=== PATIENT | female | born 1950 | race Caucasian/White ===

== ENCOUNTER 2017-01-07 08:15 | Outpatient (CLI) ==
--- NOTE | 2017-01-07 08:58 | MAMMO ---
EXAM: Bilateral digital screening mammogram. History: Screening Comparison: Bilateral mammogram 01/04/2016. Findings: MLO and CC views of bilateral breasts demonstrate scattered fibroglandular breast parench yma. No change in the benign appearing bilateral nodular densities. No developing masses, no suspic ious microcalcifications and no architectural distortions Impression: Benign stable mammogram. Recommend followup routine screening mammography in 1 year. BIRADS 2
== END 2017-01-07 08:16 | disposition home or self-care (01) ==
LOC: RAD 08:15
PROVIDERS: ATTEND Emergency Medicine
DX: Z12.31 Encounter for screening mammogram for malignant neoplasm of breast (principal)

== ENCOUNTER 2017-03-18 13:49 | Outpatient (CLI) ==
[2017-03-18 14:24] LABS: BASOPHILS # (AUTO) 0.1 K/uL (0-0.2); BASOPHILS % (AUTO) 0.6 % (0.0-3.0); EOSINOPHILS # (AUTO) 0.2 K/ul (0.0-0.7); EOSINOPHILS % (AUTO) 2.1 % (0.0-7.0); HEMATOCRIT 41.2 % (37.0-47.0); HEMOGLOBIN 13.4 g/dl (12.0-16.0); IMMATURE GRANULOCYTE % (AUTO) 0.5 % (0.0-5.0); LYMPHOCYTES # (AUTO) 1.4 K/uL (0.60-3.4); LYMPHOCYTES % (AUTO) 15.6 (10.0-50.0); MEAN CORPUSCULAR HEMOGLOBIN 27.1 pg (27.0-31.0); MEAN CORPUSCULAR HGB CONC 32.5 (31.8-35.4); MEAN CORPUSCULAR VOLUME 83.2 fl (81.0-99.0); MONOCYTES # (AUTO) 0.6 K/uL (0.4-2.0); MONOCYTES % (AUTO) 6.6 (0-10); NEUTROPHILS # (AUTO) 6.6 K/ul (2.0-6.9); NEUTROPHILS % (AUTO) 74.6; PLATELET COUNT 284 10^3/uL (140-440); RED BLOOD COUNT 4.95 10^6/ul (4.20-5.40); WHITE BLOOD COUNT 8.85 K/ul (4.6-10.2)
[2017-03-18 15:01] LABS: ALBUMIN 3.7 g/dL (3.4-5.0); ALBUMIN/GLOBULIN RATIO 0.95; ANION GAP 13.6; BILIRUBIN,TOTAL 0.75 mg/dL (0.00-1.20); BUN/CREATININE RATIO 10.52; CHOL/HDL RATIO 3.2 (4.5-5.5); CREATININE 0.95 mg/dL (0.60-1.30); POTASSIUM 3.6 mmol/L (3.5-5.10); TOTAL PROTEIN 7.6 g/dL (5.8-8.1)
== END 2017-03-18 13:50 | disposition home or self-care (01) ==
LOC: LAB 13:49
PROVIDERS: ATTEND Emergency Medicine
DX: E78.5 Hyperlipidemia, unspecified (principal); I10 Essential (primary) hypertension
CPT/HCPCS: 36415; 80053; 80061; 84443; 85025

== ENCOUNTER 2017-06-17 09:33 | Outpatient (CLI) ==
[2017-06-17 09:45] LABS: BASOPHILS # (AUTO) 0.1 K/uL (0-0.2); BASOPHILS % (AUTO) 0.5 % (0.0-3.0); EOSINOPHILS # (AUTO) 0.1 K/ul (0.0-0.7); EOSINOPHILS % (AUTO) 1.2 % (0.0-7.0); HEMATOCRIT 41.7 % (37.0-47.0); HEMOGLOBIN 13.9 g/dl (12.0-16.0); IMMATURE GRANULOCYTE % (AUTO) 0.6 % (0.0-5.0); LYMPHOCYTES # (AUTO) 1.5 K/uL (0.60-3.4); LYMPHOCYTES % (AUTO) 13.8 (10.0-50.0); MEAN CORPUSCULAR HEMOGLOBIN 27.6 pg (27.0-31.0); MEAN CORPUSCULAR HGB CONC 33.3 (31.8-35.4); MEAN CORPUSCULAR VOLUME 82.9 fl (81.0-99.0); MONOCYTES # (AUTO) 0.8 K/uL (0.4-2.0); MONOCYTES % (AUTO) 7.1 (0-10); NEUTROPHILS # (AUTO) 8.4 K/ul (2.0-6.9); NEUTROPHILS % (AUTO) 76.8; PLATELET COUNT 278 10^3/uL (140-440); RED BLOOD COUNT 5.03 10^6/ul (4.20-5.40); WHITE BLOOD COUNT 10.88 K/ul (4.6-10.2)
[2017-06-17 10:22] LABS: ALBUMIN 3.7 g/dL (3.4-5.0); ALBUMIN/GLOBULIN RATIO 0.86; ANION GAP 13.7; BILIRUBIN,TOTAL 0.85 mg/dL (0.00-1.20); BUN/CREATININE RATIO 14.13; CALCIUM 10.1 mg/dL (8.2-10.2); CHOL/HDL RATIO 3.4 (4.5-5.5); CREATININE 0.92 mg/dL (0.60-1.30); POTASSIUM 3.7 mmol/L (3.5-5.10)
== END 2017-06-17 09:34 | disposition home or self-care (01) ==
LOC: CAR 09:33
PROVIDERS: ATTEND Emergency Medicine
DX: E78.5 Hyperlipidemia, unspecified (principal); I10 Essential (primary) hypertension; G47.30 Sleep apnea, unspecified
CPT/HCPCS: 36415; 80053; 80061; 84443; 85025; 93005; 93010

== ENCOUNTER 2017-07-22 15:04 | Outpatient (CLI) | END 2017-07-22 15:05 | disposition home or self-care (01) | LOC: CAR 15:04 | PROVIDERS: ATTEND Emergency Medicine | DX: G47.30 Sleep apnea, unspecified (principal) ==

== ENCOUNTER 2017-10-14 10:48 | Outpatient (CLI) | END 2017-10-14 10:49 | disposition home or self-care (01) | LOC: RHC-LAB 10:48 | PROVIDERS: ATTEND Emergency Medicine | DX: E78.5 Hyperlipidemia, unspecified (principal); I10 Essential (primary) hypertension | CPT/HCPCS: 36415; 80053; 80061; 84443; 85025 ==

== ENCOUNTER 2018-02-10 09:30 | Outpatient (CLI) | payer OTHER | END 2018-02-10 09:31 | disposition home or self-care (01) | LOC: RAD 09:30 | PROVIDERS: ATTEND Emergency Medicine | DX: Z12.31 Encounter for screening mammogram for malignant neoplasm of breast (principal) | CPT/HCPCS: 77067 ==

== ENCOUNTER 2018-12-23 06:38 | Outpatient (CLI) ==
--- NOTE | 2018-12-23 09:17 | DI ---
EXAM: Two views of the chest. History: Short of breath Findings: Heart size is upper limits of normal. Scattered areas of subsegmental atelectasis. Left midlung nodule. No acute consolidation. No appreciable pleural fluid and no pneumothorax. No acute osseous abnormalities. Degenerative changes of the spine. Impression: Unexpected finding: Left midlung nodule. Recommend further evaluation with contrast en hanced chest CT.
--- NOTE | 2018-12-24 11:22 | ECHO2D ---
Date of Exam: 12/23/2018 Ordering Physician: MARVIN LOZANO MD Room #: OP Reason for Echo: SHORT OF BREATH, HYERTENSION M-Mode Normal Adult Results LV Dimensions Normal Adult Results AoV Opening excursions >1.6 >1.6 LVEDD-base- 3.5-5.8 4.9 Ao root dimensions 2.0-3.7 3.6 LVESD-base- 3.1-4.6 L. Atrium dimensions 1.9-3.8 5.3 Post. Wall thickness 0.8-1.1 1.2 IV septum (thickness) 0.7-1.2 1.3 Post. Wall excursion 0.72-1.3 NORMAL Septal motion NORMAL Systolic motion R. Ventricular cavity 1.5-2.0 NORMAL LVEF 60% 59% Paradoxical septal wall motion NORMAL 2-D : ENLARGED LEFT ATRIAL CAVITY. 2-D M Mode Echocardiogram was performed using apical four chamber and left parasternal long and short axis views. Mitral, tricuspid and aortic valves appear to be normal. Contractility of the left ventricle seems to be normal, so is the cavity size. Left atrial cavity size and aortic root appear to be normal. There is no pericardial effusion. There is no thrombus noted in the left ventricular or left aortic cavity. No mitral valve prolapse noted. M-MODE: MV: NORMAL AV: NORMAL TV: NORMAL PV: NORMAL CHAMBER SIZE: ENLARGED LEFT ATRIAL CAVITY WALL MOTION: NORMAL PERICARDIUM: NORMAL INTERPRETATION: 1. LEFT VENTRICULAR HYPERTROPHY WITH ENLARGED LEFT ATRIAL CAVITY 2. NORMAL LEFT VENTRICULAR CONTRACTILITY 3. NORMAL VALVES MTDD
== END 2018-12-23 06:39 | disposition home or self-care (01) ==
LOC: CAR 06:38
PROVIDERS: ATTEND Internal Medicine
DX: R06.02 Shortness of breath (principal); I10 Essential (primary) hypertension
CPT/HCPCS: 94761

== ENCOUNTER 2018-12-26 07:57 | Outpatient (CLI) ==
--- NOTE | 2018-12-26 09:13 | CT ---
EXAM: CT of the chest with and without contrast History: Left lung nodule seen on chest radiograph Comparison: Chest radiograph 12/23/2018 Technique: Multiplanar CT images through the thorax were obtained with and without the administratio n of IV contrast Findings: Heart is mildly enlarged. No pericardial effusion. Great vessels are unremarkable. No a xillary lymphadenopathy. No pathologically enlarged mediastinal or hilar lymph nodes. 1.9 cm lobula kajal nodule within the left upper lobe. Bibasilar subsegmental atelectasis. No pleural fluid and no pneumothorax. Within the visualized upper abdomen, the liver is fatty. Small to moderate hiatal hernia. No acute osseous abnormalities. Impression: 1. Left upper lobe lung nodule is suspicious for malignancy. Biopsy is recommended. 2. Mild cardiomegaly. 3. Hiatal hernia. 4. Hepatic steatosis
== END 2018-12-26 07:58 | disposition home or self-care (01) ==
LOC: RAD 07:57
PROVIDERS: ATTEND Internal Medicine
DX: R91.1 Solitary pulmonary nodule (principal)
CPT/HCPCS: 36415; 82565